=== PATIENT | male | born 1950 | race Two or more races ===

== ENCOUNTER 2017-06-29 11:52 | Day surgery (SDC) | payer OTHER ==
[~2017-06-29] VITALS: Ht 167.6 cm; Wt 72.6 kg
[2017-06-29] VITALS (12 sets, daily range): BP systolic 104–146; BP diastolic 66–88
[~2017-06-29 11:52] MED LIST: ATORVASTATIN CA10 MG ORAL; IBUPROFEN600 MG ORAL
[2017-06-29] MEDS ORDERED: EPINEPHrine 1mg/1ml Amp ONE (13:22)
[2017-06-29] MEDS ORDERED: Lidocaine 1% 10mg/ml/Epi 0.005mg/ml 30ml vial INJ ONE (13:22)
[2017-06-29] MEDS ORDERED: Bupivacaine 0.25% Inj 30ml INJ ONE (13:22)
[2017-06-29] MEDS ORDERED: Ropivacaine 5mg/ml Vial 30ml INJ ONE (13:23)
[2017-06-29] MEDS ORDERED: LR 1000ml 1,000 ML IVLG SCH (13:26)
--- NOTE | 2017-06-29 13:26 | Anethesia Preoperative Eval ---
Anesthesia Pre-op PMH/ROS General Date of Evaluation: Jun 29, 2017 Anesthesiologist: Solis ASA Score: ASA 3 Mallampati Score Class I : Soft palate, uvula, fauces, pillars visible Class II: Soft palate, uvula, fauces visible Class III: Soft palate, base of uvula visible Class IV: Only hard plate visible Mallampati Classification: Class II Surgeon: Dylan Diagnosis: Left knee torn meniscus Surgical Procedure: Left knee arthroscopy and medial meniscectomy Anesthesia History: none Family History: no anesthesia problems Allergies: Coded Allergies: No Known Allergies (Unverified , 06/28/17) Medications: see eMAR Past Medical History Cardiovascular: Reports: other - HLD; Denies: HTN, CAD, [place], valve dz, arrhythmia Pulmonary: Reports: other - prostate CA; Denies: asthma, COPD, [place] Gastrointestinal/Genitourinary: Denies: GERD, CRI, ESRD, other Neurologic/Psychiatric: Denies: dementia, CVA, depression/anxiety, TIA, other Endocrine: Denies: DM, hypothyroidism, steroids, other HEENT: Denies: cataract (L), cataract (R), glaucoma, [place] (L), [place] (R), other Hematology/Immune: Denies: anemia, DVT, bleeding disorder, other Musculoskeletal/Integumentary: Denies: OA, RA, DJD, DDD, edema, other PSxH Narrative: prostatectomy Anesthesia Pre-op Phys. Exam Physician Exam Last Vital Signs Date Time Temp Pulse Resp B/P (MAP) Pulse Ox O2 Delivery O2 Flow Rate FiO2 06/29/17 12:23 97.4 61 18 104/66 96 Room Air 97.4 Constitutional: NAD Cardiovascular: RRR Respiratory: CTA Airway Exam Mallampati Score: Class II MO: full ROM: full Anesthesia Pre-op A/P Labs see chart Studies Pre-op Studies: EKG - sr Risk Assessment & Plan Assessment: ASA III Plan: GA Status Change Before Surgery: No Pre-Antibiotics Drug: Ancef 1g Given Within 1 Hr of Incision: TATIANA Glover M.D. Jun 29, 2017 13:26
[2017-06-29] MEDS ORDERED: Hydromorphone 0.5mg/0.5ml inj IVP PRN (13:30)
[2017-06-29] MEDS ORDERED: LORazepam Inj 2mg/ml 1ml IV PRN (13:30)
[2017-06-29] MEDS ORDERED: fentaNYL 100 mcg/2 mL IV PRN (13:30)
[2017-06-29] MEDS ORDERED: Ketorolac 30mg Inj IV PRN (13:30)
[2017-06-29] MEDS ORDERED: Midazolam 2mg/2ml Inj IVP PRN (13:30)
[2017-06-29] MEDS ORDERED: DiphenhydrAMINE 50mg/ml Inj IVP PRN (13:30)
[2017-06-29] MEDS ORDERED: Lidocaine 1% MPF 10mg/ml 5ml ONE (14:00)
[2017-06-29] MEDS ORDERED: fentaNYL 100 mcg/2 mL IV ONE (14:00)
[2017-06-29] MEDS ORDERED: Midazolam 2mg/2ml Inj ONE (14:00)
[2017-06-29] MEDS ORDERED: Propofol 200mg/20ml IV ONE (14:00)
[2017-06-29] MEDS ORDERED: Sterile Water Irrig 1000ml IRRIG ONE (14:00)
[2017-06-29] MEDS ORDERED: LR 1000ml ONE (14:00)
--- NOTE | 2017-06-29 14:04 | Pre-Procedure Note/Attestation ---
Pre-Procedure Note/Attestation Complete Prior to Procedure Planned Procedure: left Procedure Narrative: Left knee arthroscopy with partial menisectomy Indications for Procedure Pre-Operative Diagnosis: Left knee meniscus tear Attestation I attest that I discussed the nature of the procedure; its benefits; risks and complications; and alternatives (and the risks and benefits of such alternatives ), prior to the procedure, with the patient (or the patient's legal vaccine customer representative). I attest that, if there was a reasonable possibility of needing a blood transfusion, the patient (or the patient's legal vaccine customer representative) was given the [facility] standardized written summary, pursuant to the Nomi Kendrick Blood Safety Act ([place] Health and Safety Code # 1645, as amended). I attest that I re-evaluated the patient just prior to the surgery and that there has been no change in the patient's H&P, except as documented below: Jorge L Richardson MD Jun 29, 2017 14:04
[2017-06-29] MEDS ORDERED: NS Irrig 4000ml IRRIG ONE (14:10)
--- NOTE | 2017-06-29 14:56 | Immediate Post-Op Evaluation ---
Immediate Post-Op Evalulation Immediate Post-Op Evalulation Procedure: Left knee arthroscopy and medial meniscectomy Date of Evaluation: Jun 29, 2017 Time of Evaluation: 14:58 IV Fluids: 600 Blood Products: 0 Estimated Blood Loss: 5 Urinary Output: 0 Blood Pressure Systolic: 139 Blood Pressure Diastolic: 77 Pulse Rate: 71 Respiratory Rate: 16 O2 Sat by Pulse Oximetry: 100 Temperature (Fahrenheit): 97.4 Pain Score (1-10): 0 Nausea: No Vomiting: No Complications 0 Patient Status: awake, reacts, patent, none Hydration Status: adequate Drug: Ancef 1g Given Within 1 Hr of Incision: Yes Time Given: 14:15 TATIANA ISABEL M.D. Jun 29, 2017 14:56
--- NOTE | 2017-06-29 14:57 | 48 Hour Post Anesthesia Eval ---
Post Anesthesia Evaluation Procedure: Left knee arthroscopy and medial meniscectomy Date of Evaluation: Jun 29, 2017 Time of Evaluation: 17:08 Blood Pressure Systolic: 134 0: 81 Pulse Rate: 53 Respiratory Rate: 15 Temperature (Fahrenheit): 97.2 O2 Sat by Pulse Oximetry: 96 Airway: patent Nausea: No Vomiting: No Pain Intensity: 0 Hydration Status: adequate Cardiopulmonary Status: at baseline Mental Status/LOC: patient returned to baseline Post-Anesthesia Complications: 0 Follow-up care needed: ready to discharge TATIANA ISABEL M.D. Jun 29, 2017 14:57
--- NOTE | 2017-06-29 17:30 | Operative Note - Dictated ---
DATE OF OPERATION: 06/29/2017 SURGEON: Jorge L Richardson M.D.. FRONT END ARCHITECT: None. ANESTHESIA: General plus local. COMPLICATIONS: None. ANTIBIOTICS: Ancef. PREOPERATIVE DIAGNOSES: Left knee: 1. Medial meniscus tear. 2. Medial patellar facet chondrosis. POSTOPERATIVE DIAGNOSES: Left knee: 1. Medial meniscus tear. 2. Medial patellar facet chondrosis. PROCEDURE PERFORMED: Left knee arthroscopy with: 1. Partial medial meniscectomy (posterior horn). 2. Medial patellar facet Chondroplasty. BACKGROUND: The patient sustained trauma to the left knee causing symptoms. An MRI confirmed the diagnosis. All risks, benefits, and alternatives to surgical intervention were discussed in great detail. Risks included, but were not limited to, bleeding, infection, neurovascular injury, need for additional surgical intervention, failure of pain relief, arthrofibrosis, complications of anesthesia, blood clots, stroke, heart attack, and potentially . He understood these risks, amongst others including need for revision surgery and persistent knee pain, and consent was signed. PROCEDURE IN DETAIL: The patient was brought into the operating room placed supine on the operating table. The left knee was correctly verified for surgical site and prepped and draped in standard sterile fashion. Exam under anesthesia revealed symmetric range of motion of the contralateral side, no effusion, and no laxity. Anteromedial and anterolateral portals were marked and injected with 20 mL 0.25% lidocaine with epinephrine. A diagnostic arthroscopy was then undertaken. It revealed the followin. Normal suprapatellar pouch. 2. Medial patellar facet grade 2/3 chondrosis. 3. Normal trochlea. 4. Normal medial gutter. 5. Normal lateral gutter. 6. Normal lateral compartment. 7. Normal lateral meniscus. 8. Normal anterior cruciate ligament. 9. Normal posterior cruciate ligament. 10. Normal medial compartment. 11. Small tear of posterior horn medial meniscus (radial edge). A probe was used to test the stability of all the normal-appearing structures intra-articularly. A 3.5 mm shaver and a biter were then used to resect the posterior horn meniscal tear. It was resected to a stable border and tested with a probe. Attention was then turned to the medial patellar facet. Using a 3.5 mm shaver, a chondroplasty was performed over the medial patellar facet chondrosis. All fluid and debris were then evacuated from the knee. A 10 mL of 0.25% lidocaine with epinephrine was injected. The wounds were copiously irrigated and reapproximated using 4-0 Monocryl in a subcuticular fashion. Steri-Strips were used over Mastisol. Dry sterile dressing was applied. A compressive stocking was fitted. He tolerated the procedure. There were no complications. I attest that I performed the entire operation. He was transferred to recovery in good condition. Jorge L Richardson M.D. DR: SAILAJA JOB#: [id number] CC:
[2017-06-29] MEDS ORDERED: Norco 5mg/325mg tab ORAL PRN (21:01)
[2017-06-29] MEDS ORDERED: D5 1/2NS 1,000 ML IV SCH (21:01)
[2017-06-29] MEDS ORDERED: HYDROmorphone 1mg/ml Carpuject SUBQ PRN (21:01)
[2017-06-29] MEDS ORDERED: Tylenol #3 tab (300mg/30mg) ORAL PRN (21:01)
[2017-06-30 07:33] VITALS: BP 134/81
== END 2017-06-29 17:14 | disposition home or self-care (01) ==
LOC: SUR 11:52
DX: S83.242A Other tear of medial meniscus, current injury, left knee, initial encounter (principal); M24.10 Other articular cartilage disorders, unspecified site; Z90.89 Acquired absence of other organs; Z90.79 Acquired absence of other genital organ(s); E78.5 Hyperlipidemia, unspecified; Z85.46 Personal history of malignant neoplasm of prostate; X58.XXXA Exposure to other specified factors, initial encounter; Y93.9 Activity, unspecified; Y92.9 Unspecified place or not applicable
CPT/HCPCS: 29881; 97161; G8978; G8979; G8980; J0171; J0690; J2250; J2704; J3010; J7120; 94003; 94150